=== PATIENT | male | born 1960 | race Caucasian/White ===

== ENCOUNTER 2021-08-17 07:31 | Day surgery (SDC) | payer OTHER ==
[~2021-08-17] VITALS: Ht 167.6 cm; Wt 68.6 kg
[~2021-08-17 07:31] MED LIST: ASCO500 PO; B-12500 MC2; FISH OIL 1,2001 EAC4 PO; TURMERIC500 M2; VITAMIN D310 MC4 PO; Vitamin E100 UNIT; ZINC15; [UNRECOGNIZED DRUG - OTHER]
== END 2021-08-17 09:21 | disposition home or self-care (01) ==
LOC: ORSCSDS 07:31
PROVIDERS: Surgery
PROC: 0DBN8ZX Excision of Sigmoid Colon, Via Natural or Artificial Opening Endoscopic, Diagnostic (ICD-10-PCS; principal; 2021-08-17 08:45)
PROC: 0DBH8ZX Excision of Cecum, Via Natural or Artificial Opening Endoscopic, Diagnostic (ICD-10-PCS; principal; 2021-08-17 08:45)
DX: R93.3 Abnormal findings on diagnostic imaging of other parts of digestive tract (principal); D12.5 Benign neoplasm of sigmoid colon; K57.30 Diverticulosis of large intestine without perforation or abscess without bleeding; K64.8 Other hemorrhoids; Z86.16 Personal history of COVID-19; N40.0 Benign prostatic hyperplasia without lower urinary tract symptoms; F17.220 Nicotine dependence, chewing tobacco, uncomplicated
CPT/HCPCS: 88305; J2704; J7120

== ENCOUNTER 2021-10-29 08:36 | Day surgery (SDC) | payer OTHER ==
[~2021-10-29] VITALS: Ht 172.7 cm; Wt 70.7 kg
--- NOTE | 2021-10-29 09:44 | NUR ---
History, Chart, Medications and Allergies reviewed before start of procedure. Patient confirms NPO status and agrees with scheduled surgery. Lungs clear T/O to Auscultation. Patient States Post-Procedure ride home has been arranged with a friend.
--- NOTE | 2021-10-29 13:15 | NUR ---
10/29/21 1315 Reinier Vargas DC AT END OF CASE 400CC CLEAR YELLOW URINE
--- NOTE | 2021-10-29 14:35 | NUR ---
PT'S RIDE, NOT ANSWERING. ASKED PT TO CALL HER ON HIS CELL PHONE. PT IS STANDING AT BEDSIDE, STATES HE NEEDS TO VOID, BUT THEN CHANGED HIS MIND. ASKED TO SIT DOWN, PT STILL STANDING STILL HADN'T CALLED HIS RIDE AT 1505. PT STATES IT FEELS BETTER TO STAND AND BE HERE THEN AT HOME.
--- NOTE | 2021-10-29 14:45 | NUR ---
Patient up to Ambulate independently. Gait steady. Discharge instructions reviewed with patient. Patient verbalizes understanding. Copy given to patient to take home. Dressing to procedure site clean, dry, intact with no visible drainage, swelling, erythema or bruising noted.
--- NOTE | 2021-10-29 15:17 | NUR ---
REPORT TO WILLEM MELO.
== END 2021-10-29 23:41 | disposition home or self-care (01) ==
LOC: ORSCMMR 08:36 → ORD 10:00 → ORSCMMR 10:00
PROVIDERS: Surgery
PROC: 0YUA4JZ Supplement Bilateral Inguinal Region with Synthetic Substitute, Percutaneous Endoscopic Approach (ICD-10-PCS; principal; 2021-10-29 10:00)
PROC: 8E0W4CZ Robotic Assisted Procedure of Trunk Region, Percutaneous Endoscopic Approach (ICD-10-PCS; principal; 2021-10-29 10:00)
DX: K40.21 Bilateral inguinal hernia, without obstruction or gangrene, recurrent (principal); E78.5 Hyperlipidemia, unspecified; F17.220 Nicotine dependence, chewing tobacco, uncomplicated; N40.0 Benign prostatic hyperplasia without lower urinary tract symptoms
CPT/HCPCS: 49651; S2900; 93005; 93010; A9270; C1781; J0690; J1100; J2250; J2370; J2405; J2704; J3010; J7120